=== PATIENT | male | born 1990 | race Caucasian/White ===

== ENCOUNTER 2023-08-10 17:10 | Outpatient (RCR) | payer OTHER, SELFPAY | END 2023-08-10 23:59 | disposition home or self-care (01) | LOC: ROT 17:10 | PROVIDERS: ATTENDING PHYSICIAN Orthopaedic Surgery; FAMILY PHYSICIAN Internal Medicine | DX: S62.622D Displaced fracture of middle phalanx of right middle finger, subsequent encounter for fracture with routine healing (principal); S62.322D Displaced fracture of shaft of third metacarpal bone, right hand, subsequent encounter for fracture with routine healing (principal) | CPT/HCPCS: 97010; 97110; 97140 ==

== ENCOUNTER 2023-08-31 11:18 | Outpatient (RCR) | payer OTHER, SELFPAY | END 2023-09-05 14:20 | disposition home or self-care (01) | LOC: ROT 11:18 | PROVIDERS: ATTENDING PHYSICIAN Orthopaedic Surgery; FAMILY PHYSICIAN Internal Medicine | DX: Z47.89 Encounter for other orthopedic aftercare (principal); S62.622D Displaced fracture of middle phalanx of right middle finger, subsequent encounter for fracture with routine healing; Z73.6 Limitation of activities due to disability | CPT/HCPCS: 97010; 97110; 97140; 97530 ==